=== PATIENT | female | born 1970 | race Caucasian/White ===

== ENCOUNTER → 2017-11-18 | Day surgery (SDC) | payer OTHER ==
[2017-11-16 10:11] LABS: BASOPHILS # (AUTO) 0.1 (0.0-0.1); BASOPHILS % 0.7 % (0.0-1.0); EOSINOPHILS # (AUTO) 0.3 (0.0-0.4); EOSINOPHILS % 4.7 % (0.0-6.0); HEMOGLOBIN 13.4 g/dL (12.0-16.0); LYMPHOCYTES # (AUTO) 4.7 (1.0-3.2); LYMPHOCYTES % 63.8 % (18.0-39.1); MEAN CORPUSCULAR HEMOGLOBIN 30.9 pg (28-32); MEAN CORPUSCULAR HGB CONC 31.9 g/dL (31-35); MEAN CORPUSCULAR VOLUME 96.8 fL (81-99); MONOCYTES # (AUTO) 0.3 (0.2-0.8); MONOCYTES % 4.5 % (4.4-11.3); NEUTROPHILS # (AUTO) 1.9 (2.1-6.9); NEUTROPHILS % 25.8 % (38.7-80.0); PLATELET COUNT 303 x10e3/uL (140-360); RED BLOOD COUNT 4.34 x10e6/uL (3.6-5.1); RED CELL DISTRIBUTION WIDTH 12.9 % (11.7-14.4)
[2017-11-16 10:25] LABS: ANION GAP 18.2 mmol/L (8-16); CALCIUM 9.7 mg/dL (8.4-10.2); CREATININE, SERUM 1.24 mg/dL (0.57-1.11); POTASSIUM 4.2 mmol/L (3.5-5.1)
[~2017-11-18] MED LIST: ACETAMINOPHEN-1 EAC4 PO; ALBUTEROL0.63 MG/3 NEB; BUPIVACAINE 0.5%/EPI 30 ML SDV INJ ONE; BUTALBITAL-ASA1 EACH PO; CEFTRIAXONE SOD 1 GM VIAL ONE; CLINDAMYCIN 600MG / 50ML 50 ML IV ONE; DEXAMETHASONE SOD PHOS INJ 4 MG/ML VIAL ONE; DIAZEPAM5 MG PO; DICYCLOMINE HCL20 MG PO; DIVALPROEX SOD250 M1 PO; FENOFIBRATE145 MG PO; FENTANYL CITRATE/PF 100MCG/2 ML INJ ONE; FUROSEMIDE40 MG PO; LEVOCETIRIZINE D5 MG PO; LIDOCAINE 1% W/EPINEPHRINE 20 ML VIAL ONE; LIDOCAINE 2%/ EPINEPHRINE 20ML MDV ONE; LIDOCAINE HCL 2% LOCAL INJ 5 ML SDV VIAL INJ ONE; LOVASTATIN40 MG; MECLIZINE HCL12.5 MG PO; MIDAZOLAM HCL 2 MG/2 ML VIAL ONE; ONDANSETRON HCL INJ 2 MG/ML VIAL ONE; PROMETHAZINE HC25 M1 PO; PROPANOLOL ER PO; PROPOFOL IV EMULSION 10 MG/ML 20 ML VIAL ONE; QUETIAPINE FUMA25 MG PO; RISPERIDONE1 MG PO; ROCURONIUM BROMIDE 10 MG/ML 5ML VIAL ONE; SEVOFLURANE INHAL SOLN 250 ML PEN BTL ONE; SUCCINYLCHOLINE 200 MG/10 ML SYR ONE; TAMSULOSIN HCL0.4 MG PO; THORAZINE25 MG PO; VENLAFAXINE HCL75 M2 PO; VENTOLIN HFA18 GM IH; mesalamine PO
[2017-11-18 15:45] VITALS: BP 123/90
--- NOTE | 2017-12-28 00:41 | Operative Report ---
DATE OF PROCEDURE: November 18, 2017 PREOPERATIVE DIAGNOSIS: Refractory urge incontinence. POSTOPERATIVE DIAGNOSIS: Refractory urge incontinence. OPERATIONS PERFORMED 1. Complete InterStim system implantation with incision and implantation of marylou quadripolar lead electrodes into the right foramen S3. 2. Fluoroscopic guidance for needle placement. 3. Subcutaneous implantation of sacral nerve neurostimulator. 4. Electronic analysis and complex programming. ANESTHESIA: General. COMPLICATIONS: None. CLINICAL SUMMARY: Orlando Colon is a 47-year-old woman with refractory urge incontinence. She has failed medications. She had failed behavioral therapy. She had a successful percutaneous nerve stimulation test that improved her symptomatology significantly. She is elected to proceed with implantation as planned. She understands the risks of bleeding infection injury to adjacent structures, persistent, incontinence, failure of procedure, inability to have an MRI testing. She understood all these risks and elected to proceed. OPERATIVE PROCEDURE IN DETAIL: Informed consent was verified. Orlando Colon was properly identified, taken to the operating room, where anesthesia was uneventfully begun. The patient was then carefully and gently repositioned in the prone position with all pressure points carefully well padded. Her back and buttocks were prepared and draped in usual sterile fashion. A needle was introduced into the right foramen S3. The depth of needle was confirmed and adjusted fluoroscopically. Proper needle position was confirmed by direct observation of lifting of the perineum or "bellowing" and direct observation of plantar flexion of the great toe utilizing the test stimulator box. The needle stylet was then removed and directional guidewire was then placed and confirmed fluoroscopically. The foramen needle was then removed. Then, incision was then made peripherally to the directional guide. The dilator and introducer sheath were then placed over the directional guide and directed into foramen until the opaque marker of the dilator was seen midway through the sacrum. The dilator obturator was then unlocked and removed and the lead was then placed through the introducer sheath to the 1st white line. Position was checked fluoroscopically and then, the lead was further advanced until 3 electrodes were visible anterior to the sacrum. Each electrode was then tested for the same type of responses noted above. After satisfactory position was confirmed, under continuous fluoroscopy. The introducer sheath was then retracted; thus, deploying the lead tines into the parasacral tissue. Further incision was then made into the subcutaneous tissues posterior to the iliac crest and a pocket was developed. Pinpoint electrocautery was utilized to achieve hemostasis. The tunneling tool was then utilized to bring the lead from the lead incision to the incised pocket site. The lead was then thoroughly cleansed of bodily fluids with sterile water and dried thoroughly. It was then placed into the InterStim pulse generator with the metal bands aligned and the blue tip clearly visible in the distal portion of pulse generator header. The single set screw was tightened with a hex wrench. The pulse generator was then placed into the subcutaneous pocket and the programming head was then placed over the implanted neurostimulator. All impedance parameters were verified to be in within acceptable limits. We copiously irrigated and both incisions were approximated in 2 layers utilizing absorbable sutures. A combination of Marcaine and lidocaine with epinephrine was utilized throughout the case. Mastisol, Steri-Strips were applied. Bio-occlusive dressings were applied. The patient was uneventfully reversed from anesthesia. Taken to recovery room in stable condition. Utilizing the clinician systems programmer analyst, the patient was then programmed to a lead of optimum sensation and given explicit instructions on utilization of the patient's systems programmer analyst prior to discharge. There were no complications to the procedure. Patient tolerated the procedure well. Sponge, needle, instrument count was correct x2 at the end of the case. Estimated blood loss was minimal. Explicit postoperative instructions were given. Will follow the patient up in the office. Job#: [id number] CQ cc:ABRIL GONZALEZ DO
== END | disposition home or self-care (01) ==
LOC: OR 10:59
PROVIDERS: ATTEND Urology
DX: N39.46 Mixed incontinence (principal); N39.44 Nocturnal enuresis; R35.1 Nocturia; N18.9 Chronic kidney disease, unspecified; N39.0 Urinary tract infection, site not specified; N32.81 Overactive bladder; N81.89 Other female genital prolapse; N95.2 Postmenopausal atrophic vaginitis; E66.01 Morbid (severe) obesity due to excess calories; J45.909 Unspecified asthma, uncomplicated; G89.29 Other chronic pain; F31.9 Bipolar disorder, unspecified; Z88.8 Allergy status to other drugs, medicaments and biological substances; F17.200 Nicotine dependence, unspecified, uncomplicated; Z91.048 Other nonmedicinal substance allergy status; Z88.2 Allergy status to sulfonamides; Z01.810 Encounter for preprocedural cardiovascular examination; Z01.812 Encounter for preprocedural laboratory examination; Z68.34 Body mass index [BMI] 34.0-34.9, adult; Z87.442 Personal history of urinary calculi; Z86.73 Personal history of transient ischemic attack (TIA), and cerebral infarction without residual deficits
CPT/HCPCS: 36415; 64581; 64590; 76000; 80048; 85025; 93005; 95972; C1778; C1787; C1894; J0696; J1100; J2001 ×2; J2250; J2405; L8679; L8696